=== PATIENT | male | born 1995 | race Caucasian/White ===

== ENCOUNTER 2018-12-14 19:46 | Emergency (ER) | payer MEDICAID, SELFPAY ==
[2018-12-14 19:55] VITALS: BP 135/71; PULSE 127; RESP 16; TEMP 36.7; O2SAT 97
--- NOTE | 2018-12-14 20:06 | ED.GENADUL_ITS ---
Discharge Plan Disposition Patient Disposition: HOME Condition: Good Discharge Details Chief Complaint: GenMedical Clinical Impression: Dehydration, Hypokalemia Primary Care Provider: Irving De La Torre ED Provider: Angel Donato Home Meds and New Rx's Prescriptions: No Action No Known Home Meds RF: 0 Discharge Instructions Instructions: Dehydration (ED), Hypokalemia (ED) Additional Instructions: Remember to hydrate while working outside. Will refer to care management for primary care physician referral. Return to ED for worsening/persistent abdominal pain, vomiting, high fevers, other problems. Referrals: Care Management [Provider Group] Medical Decision Making Patient looks well. He is afebrile here. If anything he probably needs fluids for some dehydration. Will check basic labs and give 2 L of LR. Reevaluate once fluids in. Laboratory studies mostly unremarkable. Some hypokalemia which has been replaced orally. Patient has had 2 L of LR. He feels much better. Heart rate has come down. He remains afebrile. We discussed adequate hydration while working outside. Patient to be discharged home at this time. Refer to care management for primary care physician. Return to ED for worsening/persistent abdominal pain, vomiting, fevers, other problems. Lab Data Lab results reviewed: Yes I reviewed the patient's lab results. HPI General Mode of arrival: ambulatory . Date/Time Provider Initiated Documentation: 12/14/18 19:59 . Limitations to Documentation: no limitations . Information obtained by: patient and RN notes reviewed . HPI Narrative: Patient presents to the ED reporting fever, diarrhea, feeling unwell. Patient states that he did work all day today ty. He has had intermittent abdominal cramps and soft stool. He has had no nausea vomiting. He had a fever this evening, reporting 101 at home. He feels generally unwell and came here for evaluation. His abdominal pain is not persistent. There is no nausea vomiting. There is no back pain. There are no urinary symptoms. Related Data Home Medications Medication Instructions Recorded Confirmed Unknown [No Known Home Meds] 12/14/18 12/14/18 Allergies Allergy/AdvReac Type Severity Reaction Status Date / Time No Known Allergies Allergy Unverified 08/25/16 20:43 General Stated Complaint: GenMedical EVERARDO: 3 Review of Systems Review of Systems As documented in HPI otherwise negative as below. Const: fever, malaise, general weakness Resp: no cough, SOB, pleuritic pain CV: no CP, diaphoresis, edema, syncope GI: abdominal cramps, diarrhea; no nausea, vomiting Neuro: no headache, numbness, focal weakness, confusion PFSH Medical History Anxiety Surgical History Circumcision Tooth extraction Family History Mother Kidney failure GRANDPARENT Neoplasm Social History Smoking/Tobacco Use Status: Current every day Alcohol Intake: current Alcohol Intake frequency: a few times a week Drug use: Daily Substance use type: marijuana Do you feel safe at home: Yes Do you feel safe in your relationship?: Yes Exam Narrative Exam Narrative: Vitals: Afebrile here. Tachycardic to 130. Blood pressure normal. Const: WDWN male in NAD. HEENT: NC/AT. Normal facial exam. Eyes: Normal conjunctiva and sclera. Neck: Supple. Trachea midline. Lungs: Normal respiratory effort. Lungs are clear. Cor: RRR without murmur/gallop. Tachycardic. Good radial pulses. GI: Soft. NT/ND. No guarding or rebound. Neuro: A+O x 3. CN grossly in tact. Good strength and no focal deficit. Ext: No C/C/E. No deformity or tenderness. Skin: Warm and dry without rash. Course Vital Signs Temperature 98.1 F 12/14/18 19:55 Pulse 127 H 12/14/18 19:55 Respiratory Rate 16 12/14/18 19:55 Blood Pressure 135/71 12/14/18 19:55 Pulse Oximetry 97 12/14/18 19:55 Temperature 98.1 F 12/14/18 19:55 Temperature Source Skin 12/14/18 19:55 Pulse 127 H 12/14/18 19:55 Respiratory Rate 16 12/14/18 19:55 Respiratory Effort Non-Labored 12/14/18 19:59 Blood Pressure 135/71 12/14/18 19:55 Blood Pressure Position Sitting 12/14/18 19:55 Pulse Oximetry 97 12/14/18 19:55 Pain Level 4 12/14/18 19:55
[2018-12-14] MEDS: Lactated Ringers 2,000 ML 1000 ML IV (20:24)
[2018-12-14 20:25] VITALS: RESP 16
[2018-12-14 20:34] LABS: Abs Immature Grans 0.04 k/cumm (0.0-0.09); Absolute Basophil Count 0.03 k/cumm (0.0-0.2); Absolute Eosinophil Count 0.02 k/cumm (0.0-0.7); Absolute Lymphocyte Count 0.94 k/cumm (1.2-3.4); Absolute Monocyte Count 0.93 k/cumm (0.11-0.7); Absolute Neutrophil Count 9.25 k/cumm (1.2-6.7); Basophils % 0.3; Eosinophils % 0.2; HCT 42.2 % (40.0-50.0); HGB 14.7 g/dL (13.5-17.5); Immature Grans % 0.4; Lymphocytes % 8.4; Mean Corp. HGB Concentration 34.8 g/dL (32.0-36.0); Mean Corpuscular Hemoglobin 31.3 pg (27.0-33.0); Mean Platelet Volume 9.3 fL (8.0-11.0); Monocytes % 8.3; Neutrophils % 82.4; Platelet Count 227 x1000/uL (130-400); RBC 4.69 m/cumm (4.50-6.00); RBC Distribution Width 12.9 % (11.8-14.1); White Blood Cell Count 11.23 k/cumm (4.4-10.8)
[2018-12-14 20:54] LABS: ALT 34 U/L (12-78); AST 41 U/L (15-37); Albumin 4.2 g/dL (3.4-5.0); Alkaline Phosphatase 108 U/L (46-116); Anion Gap 11.7 mmol/L (3-11); BUN 8 mg/dL (7-18); Bilirubin, Total 0.3 mg/dL (0.2-1.0); CO2 25.3 mmol/L (21.0-32.0); CREATININE 0.82 mg/dL (0.70-1.30); Calcium 9.1 mg/dL (8.5-10.1); Chloride 102 mmol/L (98-107); Glucose 99 mg/dL (70-100); Magnesium 1.8 mg/dL (1.8-2.4); Potassium 3.2 mmol/L (3.5-5.1); Sodium 139 mmol/L (136-145); Total Protein 7.4 g/dL (6.4-8.2)
[2018-12-14] MEDS: POTASSIUM CHLORIDE 20 MEQ, POTASSIUM CHLORIDE 10 MEQ 30 MEQ PO (21:26)
[2018-12-14 21:33] VITALS: BP 153/82; PULSE 110; RESP 20; TEMP 37.5; O2SAT 99
== END 2018-12-14 21:41 | disposition home or self-care (01) ==
PROVIDERS: Emergency Provider Emergency Medicine; PCP Pediatrics
DX: E86.0 Dehydration (principal); E87.6 Hypokalemia
CPT/HCPCS: 80053; 96360; 99283; 83735; 85025

== ENCOUNTER → 2023-02-10 13:13 | Outpatient (CLI) | payer MEDICAID, SELFPAY ==
--- NOTE | 2023-02-10 | DI.RAD_ITS ---
Exam(s) XR KNEE RT 3V AP,LAT,CARLOS EXAM: XR KNEE RT 3V AP,LAT,CARLOS CLINICAL HISTORY: RT KNEE PAIN M25.561 AND SWELLING EVAL JOINT SPACE ABNORMALITY. TECHNIQUE: 2D digital imaging was performed of the right knee. Three views obtained. AP, lateral an d PA tunnel views were obtained. COMPARISON: No exams were available for comparison FINDINGS: BONES: No acute fracture is present. No bony destructive lesion is seen. JOINTS: The knee is normally aligned. Joint effusion. SOFT TISSUE: Normal. IMPRESSION: 1. No acute fracture or dislocation. 2. Joint effusion. DATA REPOSITORY: RADIATION DOSE DELIVERED:
== END ==
PROVIDERS: Visit Provider Physician Assistant Medical
DX: M25.561 Pain in right knee (principal)
CPT/HCPCS: 73562

== ENCOUNTER 2023-11-22 02:17 | Emergency (ER) | payer MEDICAID, SELFPAY ==
--- NOTE | 2023-11-22 02:19 | ED.GENADUL_ITS ---
Discharge Plan Disposition Patient Disposition: Home Condition: Good Discharge Details Clinical Impression: Deliberate self-cutting, Laceration of left leg ED Provider: Angel Donato Home Meds and New Rx's Prescriptions: No Action No Known Home Meds Discharge Instructions Instructions: Diphtheria and Tetanus Toxoids, and Acellular Pertussis Vaccine, Laceration Repair With Rajesh ED Additional Instructions: You were seen for a self-inflicted laceration to your leg. This was irrigated out and closed using rajesh. Rajesh should be removed in 10 to 14 days. Keep the wound clean and dry. Your tetanus was updated today. Return to ED for any increasing pain, redness, swelling, drainage, fever. HPI General Mode of arrival: ambulatory . Date/Time Provider Initiated Documentation: 11/22/23 02:18 . Limitations to Documentation: no limitations . Information obtained by: patient . HPI Narrative: Patient presents to ED with a left lower extremity laceration. Patient has history of deliberate self cutting as a way to release stress. He is not trying to kill himself. On the contrary, he states the self cutting distracts him from his mental anguish which is what occurred this evening. Injury actually happened quite earlier in the evening. He cleaned it out and dressed it but woke up with bleeding realized it was a lot deeper than he thought. He had been drinking earlier. He denies any other injury. Again denies any attempt at killing himself. He is not sure of his last tetanus. Related Data Home Medications Medication Instructions Recorded Confirmed Unknown [No Known Home Meds] 12/14/18 11/22/23 Allergies Allergy/AdvReac Type Severity Reaction Status Date / Time No Known Allergies Allergy Unverified 11/22/23 02:29 General EVERARDO: 3 Review of Systems Narrative: Per HPI Exam Narrative Exam Narrative: Const: WDWN male in NAD. VS per triage. HEENT: NC/AT. Normal facial exam. Neck: Supple. Trachea midline. Lungs: Normal respiratory effort. Neuro: A+O x 3. Normal speech, mentation, gait. Cranial nerves II - XII grossly intact. No gross motor or sensory deficit. Ext: No C/C/E. 8 cm linear laceration into the subcutaneous tissue of the left medial proximal calf area. No muscle or fascia exposed. No bleeding. Previous scars from cutting noted. Procedures Laceration Laceration 1: Site: lower extremity Side (If applicable): left Size (cm): 8 Description: linear and clean Depth: simple, single layer Local Anesthetic: Lidocaine 1% and with Epi Amount of anesthesia used (mL): 6 Pre-repair: wound explored, irrigated extensively and deep structures intact Size (cm): other ([place]) Number of sutures: 10 Medical Decision Making Patient presenting to ED with a self-inflicted left leg laceration. Patient has history of same. He was not trying to kill himself. Denies any SI or HI. Wound is into the subcutaneous but there is no exposure of fascia or muscle. There is no active bleeding. Wound is anesthetized and irrigated with copious amounts saline. Wound was then closed with rajesh with good approximation of skin edges. Patient tolerated well. Tetanus is updated. Patient aware of wound care and dressing changes. Rajesh out in 10 to 14 days. Return precautions provided. PFSH All Active Problems Laceration of left leg (Acute) Deliberate self-cutting (Acute) Tobacco use disorder (Acute 09/18/14) Cannabis use disorder, moderate, dependence (Acute 09/18/14) Medical History Anxiety Surgical History Tooth extraction Circumcision Family History Mother Kidney failure GRANDPARENT Neoplasm Social History Smoking/Tobacco Use Status: Current every day Smoking risk assessment performed?: Yes Alcohol Intake: current Alcohol Intake frequency: a few times a week Drug use: Daily Substance use type: marijuana Do you feel safe at home: Yes Do you feel safe in your relationship?: Yes
[2023-11-22 02:21] VITALS: BP 149/97; PULSE 129; RESP 16; TEMP 37.2; O2SAT 95
== END 2023-11-22 03:01 | disposition home or self-care (01) ==
PROVIDERS: Emergency Provider Emergency Medicine
DX: S81.812A Laceration without foreign body, left lower leg, initial encounter (principal); R45.88 Nonsuicidal self-harm; Z23 Encounter for immunization; W26.0XXA Contact with knife, initial encounter
CPT/HCPCS: 12004; 90471; 90715; 99283